=== PATIENT | male | born 1970 | race Caucasian/White ===

== ENCOUNTER 2017-10-22 11:26 | Emergency (ER) | payer BC ==
[2017-10-22 11:31] VITALS: BP 145/85; PULSE 92; TEMP 97.9; BMI 29.4
--- NOTE | 2017-10-22 11:47 | PDOC ---
History of Present Illness - General Chief Complaint: Urinary Problem Stated Complaint: KIDNEY PAIN Time Seen by Provider: 10/22/17 11:44 History Source: Patient - History of Present Illness Timing/Duration: reports: other Quality: reports: moderate Past History - Past Medical History Allergies/Adverse Reactions: Allergies Allergy/AdvReac Type Severity Reaction Status Date / Time No Known Allergies Allergy Verified 10/22/17 11:28 Home Medications: Ambulatory Orders Albuterol Sulfate Inhaler - [Ventolin HFA Inhaler -] 1 - 2 inh PO QID 04/25/14 Ibuprofen [Motrin] 800 mg PO TID #30 tablet 06/12/15 Asthma: Yes COPD: No - Immunization History Immunization Up to Date: Yes - Suicide/Smoking/Psychosocial Hx Smoking History: Never smoked Information on smoking cessation initiated: No Hx Alcohol Use: No Drug/Substance Use Hx: No Substance Use Type: None Review of Systems - Review of Systems Constitutional: No: Chills, Fever, Unexplained wgt Loss ABD/GI: No: Nausea, Vomiting, Abdominal cramping : No: Dysuria, Discharge, Flank Pain, Hematuria *Physical Exam - Vital Signs Last Vital Signs Temp Pulse Resp BP Pulse Ox 97.9 F 92 H 18 145/85 100 10/22/17 11:28 10/22/17 11:28 10/22/17 11:28 10/22/17 11:28 10/22/17 11:28 - Physical Exam Comments: 10/22/17 11:58 Pt sitting on chair and texting on phone General Appearance: Yes: Appropriately Dressed. No: Apparent Distress HEENT: positive: Normal Voice Neck: positive: Supple Respiratory/Chest: negative: Respiratory Distress Gastrointestinal/Abdominal: positive: Soft. negative: Tender Musculoskeletal: negative: CVA Tenderness, Vertebral Tenderness Integumentary: positive: Dry, Warm Neurologic: positive: Fully Oriented, Alert, Normal Mood/Affect, Motor Strength 5/5 ED Treatment Course - LABORATORY CBC & Chemistry Diagram: 10/22/17 12:11 10/22/17 12:11 Medical Decision Making - Medical Decision Making 10/22/17 11:53 47-year-old male history of asthma, chronic lower back pain, here with multiple complaints today. Patient complaining of chronic left lower back pain that sometimes radiates to groin x 1 year and states pain has been gradually getting worse and now also located to right lower back. Unable to describe pain, but states it's worse when he lays on his side and with certain movements. Feels that "pain is inside" per pt. No lower extremity weakness, saddle anesthesia, bladder or bowel incontinence or unexplained weight loss. No trauma. 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 Has been evaluated by new PMD a month ago with negative labs per patient. No imaging in past. Patient not taking anything for pain. Also complaining of decreased urinary stream x 1-1/2 months.. No urinary frequency, hematuria or dysuria otherwise. Patient denies nausea, vomiting, fever or chills. No known h/o renal stones. Of note, patient was seen [id number] for similar symptoms and had neg ua and CT a/p See exam Worsening of chronic lower back pain No recent trauma No unexplained weight loss No neuro sxs No imaging in past Neg labs in pmd's office 1 month ago ?[facility] -pain control -reassess Decreased urinary stream Possible 2/2 ? BPH -labs/ua 10/22/17 12:11 10/22/17 13:23 Labs unremarkable. Patient declines pain meds. Stable for discharge to follow up with PMD for further evaluation of chronic back pain and evaluation of prostate *DC/Admit/Observation/Transfer Diagnosis at time of Disposition: Chronic back pain Qualifiers: Back pain location: low back pain Back pain laterality: bilateral Sciatica presence: without sciatica Qualified Code(s): M54.5 - Low back pain; G89.29 - Other chronic pain; G89.29 - Other chronic pain - Discharge Dispostion Disposition: HOME Condition at time of disposition: Good - Referrals - Patient Instructions Printed Discharge Instructions: Low Back Pain Additional Instructions: Your labs and urine was normal Take motrin or tylenol for pain The cause of your back pain is unclear at this time. You will need further evaluation by your PMD. Your urinary complaints could also possibly be due to your prostate. Please also discuss this with your PMD - Post Discharge Activity
[2017-10-22] MEDS ORDERED: KETOROLAC TROMETHAMINE 30 MG/1 ML VIAL IVPUSH ONE (11:59)
[2017-10-22 12:34] LABS: EOS % 2.3 % (0-4.5); HEMATOCRIT 48.2 % (35.4-49); HEMOGLOBIN 16.1 GM/dL (11.7-16.9); LYMPH % 16.9 % (8-40); MCHC 33.4 g/dl (32.0-35.9); MEAN CELL VOLUME 86.7 fl (80-96); MEAN PLT VOLUME 9.4 fl (7.5-11.1); MONO % 8.8 % (3.8-10.2); PLATELET COUNT 221 K/MM3 (134-434); RBC 5.56 M/mm3 (4.00-5.60); RDW 13.4 % (11.9-15.9); WHITE BLOOD COUNT 7.6 K/mm3 (4.0-10.0)
[2017-10-22 12:38] LABS: URINE APPEARANCE CLEAR; URINE BILIRUBIN NEGATIVE (<2.0 mg/dL); URINE BLOOD NEGATIVE (NEGATIVE); URINE COLOR YELLOW; URINE GLUCOSE (UA) NEGATIVE (NEGATIVE); URINE KETONE NEGATIVE (NEGATIVE); URINE LEUK ESTERASE NEGATIVE (NEGATIVE); URINE NITRITE NEGATIVE (NEGATIVE); URINE PROTEIN NEGATIVE (NEGATIVE)
[2017-10-22 12:49] LABS: ALBUMIN 3.9 g/dl (3.4-5.0); ANION GAP 6 (8-16); BILIRUBIN,TOTAL 0.8 mg/dL (0.2-1.0); BLOOD UREA NITROGEN 14 mg/dL (7-18); CALCIUM 9.4 mg/dL (8.5-10.1); CHLORIDE 104 mmol/L (98-107); CO2 29 mmol/L (21-32); CREATININE 1.3 mg/dL (0.7-1.3); GLUCOSE,RANDOM 106 mg/dL (74-106); POTASSIUM 3.9 mmol/L (3.5-5.1); SGOT/AST 18 U/L (15-37); SGPT/ALT 41 U/L (12-78); SODIUM 139 mmol/L (136-145); TOT PROT 7.9 g/dl (6.4-8.2)
[2017-10-22 12:54] LABS: ALK PHOS 72 U/L (45-117)
== END 2017-10-22 13:40 | disposition home or self-care (01) ==
LOC: JER 11:26
PROC: 3E0333Z Introduction of Anti-inflammatory into Peripheral Vein, Percutaneous Approach (ICD-10-PCS; principal; 2017-10-22)
DX: M54.5 Low back pain (principal); G89.29 Other chronic pain; Z87.09 Personal history of other diseases of the respiratory system
CPT/HCPCS: 36415; 80053; 81003; 85025; 87086; 99281-25

== ENCOUNTER 2020-10-09 06:11 | Emergency (ER) | payer BC ==
[2020-10-09 06:23] VITALS: TEMP 98.7; BMI 28.8
[2020-10-09] MEDS ORDERED: ASPIRIN 81 MG CHEWABLE TABLETS PO ONE (07:18)
[2020-10-09] MEDS ORDERED: ASPIRIN 81 MG CHEWABLE TABLETS ONE (07:50)
[2020-10-09 07:53] LABS: BASO % 1.2 % (0-2.0); EOS % 2.7 % (0-4.5); HEMATOCRIT 45.7 % (35.4-49); HEMOGLOBIN 15.6 GM/dL (11.7-16.9); INR 0.97 (0.83-1.09); LYMPH % 20.4 % (8-40); MCH 29.4 pg (25.7-33.7); MCHC 34.1 g/dl (32.0-35.9); MEAN CELL VOLUME 86.2 fl (80-96); MEAN PLT VOLUME 9.4 fl (7.5-11.1); MONO % 11.6 % (3.8-10.2); NEUT % 64.1 % (42.8-82.8); PLATELET COUNT 207 K/MM3 (134-434); PROTHROMBIN TIME (PATIENT) 11.7 SEC (9.7-13.0); RDW 13.6 % (11.9-15.9); WHITE BLOOD COUNT 5.4 K/mm3 (4.0-10.0)
[2020-10-09 07:55] LABS: ACTIVATED PTT 33.2 SECONDS (25.2-36.5)
[2020-10-09 08:19] LABS: CHLORIDE 105 mmol/L (98-107); SODIUM 132 mmol/L (136-145)
[2020-10-09 08:21] LABS: CALCIUM 8.9 mg/dL (8.5-10.1)
[2020-10-09 08:22] LABS: ALBUMIN 3.8 g/dl (3.4-5.0); BLOOD UREA NITROGEN 14.9 mg/dL (7-18); CO2 28 mmol/L (21-32); GLUCOSE,RANDOM 99 mg/dL (74-106); MAGNESIUM 2.6 mg/dL (1.8-2.4)
[2020-10-09 08:25] LABS: CREATININE 1.2 mg/dL (0.55-1.3); SGOT/AST 84 U/L (15-37)
[2020-10-09 08:26] LABS: BILIRUBIN,TOTAL 0.4 mg/dL (0.2-1); TOT PROT 8.2 g/dl (6.4-8.2)
[2020-10-09 08:28] LABS: ALK PHOS 67 U/L (45-117)
[2020-10-09 08:30] LABS: N-TERMINAL BNP 20.9 pg/ml (5-125)
[2020-10-09 08:35] LABS: ANION GAP -2 MMOL/L (8-16); SGPT/ALT 44 U/L (13-61)
[2020-10-09 08:37] LABS: POTASSIUM 8.9 mmol/L (3.5-5.1)
[2020-10-09 09:42] VITALS: BP 119/80; PULSE 80
[2020-10-09 11:37] LABS: CHLORIDE 107 mmol/L (98-107); POTASSIUM 3.9 mmol/L (3.5-5.1); SODIUM 138 mmol/L (136-145)
[2020-10-09 11:38] LABS: ANION GAP 4 MMOL/L (8-16); CALCIUM 9.3 mg/dL (8.5-10.1); CO2 28 mmol/L (21-32)
[2020-10-09 11:39] LABS: BLOOD UREA NITROGEN 13.1 mg/dL (7-18); GLUCOSE,RANDOM 94 mg/dL (74-106)
[2020-10-09 11:42] LABS: CREATININE 1.1 mg/dL (0.55-1.3)
== END 2020-10-09 12:07 | disposition home or self-care (01) ==
LOC: JER 06:11
DX: R07.9 Chest pain, unspecified (principal)
CPT/HCPCS: 36415; 71045-TC-FY; 80048; 80053; 83735; 83880; 84443; 84484; 85025; 85610; 85730; 93005; 93010; 99285-25; C9803; U0003

== ENCOUNTER 2022-02-02 16:54 | Emergency (ER) | payer OTHER, BC ==
[2022-02-02 17:15] VITALS: BP 163/77; PULSE 87; TEMP 98.3; BMI 31.3
[2022-02-02] MEDS ORDERED: SULFAMETHOXAZOLE/TRIMETHOPRIM 800MG/160MG D.S. TABLET PO ONE (18:10)
[2022-02-02] MEDS ORDERED: SULFAMETHOXAZOLE/TRIMETHOPRIM 800MG/160MG D.S. TABLET ONE (18:15)
== END 2022-02-02 18:15 | disposition home or self-care (01) ==
LOC: JERFT 16:54
DX: S50.812A Abrasion of left forearm, initial encounter (principal); W50.4XXA Accidental scratch by another person, initial encounter
CPT/HCPCS: 99283-25

== ENCOUNTER 2022-05-21 19:17 | Observation (INO) | payer BC, OTHER ==
[2022-05-21 19:40] VITALS: BMI 31.1
[2022-05-21 22:30] LABS: BASO % 1.1 % (0-2.0); EOS % 3.7 % (0-4.5); HEMATOCRIT 46.4 % (35.4-49); HEMOGLOBIN 15.5 GM/dL (11.7-16.9); LYMPH % 15.8 % (8-40); MCHC 33.4 g/dl (32.0-35.9); MEAN CELL VOLUME 86.6 fl (80-96); MEAN PLT VOLUME 9.3 fl (7.5-11.1); MONO % 8.5 % (3.8-10.2); NEUT % 70.9 % (42.8-82.8); PLATELET COUNT 219 10^3/uL (134-434); RBC 5.35 M/mm3 (4.00-5.60); RDW 13.6 % (11.9-15.9); WHITE BLOOD COUNT 7.5 K/mm3 (4.0-10.0)
[2022-05-21 22:53] LABS: ALBUMIN 3.9 g/dl (3.4-5.0); CALCIUM 9.4 mg/dL (8.5-10.1)
[2022-05-21 22:57] LABS: CREATININE 1.3 mg/dL (0.55-1.3)
[2022-05-21 22:59] LABS: BILIRUBIN,TOTAL 0.3 mg/dL (0.2-1); TOT PROT 7.6 g/dl (6.4-8.2)
[2022-05-21 23:01] LABS: N-TERMINAL BNP 12.3 pg/ml (5-125)
[2022-05-22] MEDS ORDERED: ACETAMINOPHEN 1000 MG/100 ML BAG IVPB ONE (00:08)
[2022-05-22] MEDS ORDERED: ACETAMINOPHEN INJECTION 100 ML IVPB ONE ×2 (00:25→10:08)
[2022-05-22 00:41] LABS: PH,URINE 7.5 (5.0-8.0); URINE APPEARANCE CLEAR; URINE BILIRUBIN NEGATIVE (NEGATIVE); URINE COLOR YELLOW; URINE GLUCOSE (UA) NEGATIVE (NEGATIVE); URINE KETONE NEGATIVE (NEGATIVE); URINE LEUK ESTERASE NEGATIVE (NEGATIVE); URINE NITRITE NEGATIVE (NEGATIVE); URINE PROTEIN NEGATIVE (NEGATIVE); URINE UROBILINOGEN 0.2 mg/dL (0.2-1.0)
[2022-05-22 07:41] LABS: BASO % 1.1 % (0-2.0); HEMATOCRIT 45.3 % (35.4-49); HEMOGLOBIN 15.3 GM/dL (11.7-16.9); LYMPH % 18.1 % (8-40); MCH 29.3 pg (25.7-33.7); MCHC 33.8 g/dl (32.0-35.9); MEAN CELL VOLUME 86.6 fl (80-96); MEAN PLT VOLUME 9.3 fl (7.5-11.1); MONO % 11.8 % (3.8-10.2); PLATELET COUNT 197 10^3/uL (134-434); RBC 5.24 M/mm3 (4.00-5.60); RDW 13.6 % (11.9-15.9); WHITE BLOOD COUNT 6.3 K/mm3 (4.0-10.0)
[2022-05-22 07:49] LABS: ALBUMIN 3.8 g/dl (3.4-5.0); BLOOD UREA NITROGEN 16.1 mg/dL (7-18); CALCIUM 9.3 mg/dL (8.5-10.1); MAGNESIUM 2.2 mg/dL (1.8-2.4)
[2022-05-22 07:51] LABS: CREATININE 1.2 mg/dL (0.55-1.3)
[2022-05-22 07:53] LABS: BILIRUBIN,TOTAL 0.6 mg/dL (0.2-1); TOT PROT 7.4 g/dl (6.4-8.2)
[2022-05-22] MEDS: INSULIN SLIDING SCALE (NOVOLOG) 1 VIAL SQ SCH ×4 (09:25→21:59)
[2022-05-22] MEDS ORDERED: ENOXAPARIN NA (PORCINE) 40 MG/0.4 ML DISP.SYRIN SQ ONE (09:30)
[2022-05-22] MEDS: ENOXAPARIN NA (PORCINE) 40 MG/0.4 ML DISP.SYRIN SQ SCH (09:34)
[2022-05-22] MEDS ORDERED: ALBUTEROL SO4 2.5/IPRATROPIUM 0.5 INH SOL 3 ML VIAL.NEB. NEB PRN (10:47)
[2022-05-22] MEDS ORDERED: ACETAMINOPHEN 1000 MG/100 ML BAG IVPB PRN (10:48)
[2022-05-22] MEDS ORDERED: methylPREDNISolone NA SUCC 40 MG/1 ML VIAL ONE ×2 (11:29→17:41)
[2022-05-22] MEDS: methylPREDNISolone NA SUCC 40 MG/1 ML VIAL IVPUSH SCH ×2 (11:36→17:42)
[2022-05-22] MEDS ORDERED: MONTELUKAST NA 10 MG TABLET PO SCH (22:00)
[2022-05-22] MEDS ORDERED: MONTELUKAST NA 10 MG TABLET ONE (22:02)
[2022-05-22 23:06] VITALS: PULSE 100; RESP 20; TEMP 98.8
[2022-05-23] MEDS ORDERED: methylPREDNISolone NA SUCC 40 MG/1 ML VIAL ONE ×2 (02:36→12:13)
[2022-05-23] MEDS: methylPREDNISolone NA SUCC 40 MG/1 ML VIAL IVPUSH SCH ×2 (03:22→12:27)
[2022-05-23 05:44] VITALS: BP 133/78
[2022-05-23] MEDS ORDERED: ASPIRIN 81 MG CHEWABLE TABLETS PO SCH (10:00)
[2022-05-23] MEDS ORDERED: QUINAPRIL HCL 10 MG TABLET PO SCH (10:00)
[2022-05-23] MEDS: INSULIN SLIDING SCALE (NOVOLOG) 1 VIAL SQ SCH ×2 (12:12→12:27)
[2022-05-23] MEDS ORDERED: ASPIRIN 81 MG CHEWABLE TABLETS ONE (12:13)
[2022-05-23] MEDS ORDERED: ENOXAPARIN NA (PORCINE) 40 MG/0.4 ML DISP.SYRIN SQ ONE (12:13)
[2022-05-23] MEDS: ENOXAPARIN NA (PORCINE) 40 MG/0.4 ML DISP.SYRIN SQ SCH (12:27)
== END 2022-05-23 17:15 | disposition home or self-care (01) ==
LOC: JER 19:17 → JERBED 20:58
PROVIDERS: ADMIT Internal Medicine; ATTEND Internal Medicine
PROC: 3E033NZ Introduction of Analgesics, Hypnotics, Sedatives into Peripheral Vein, Percutaneous Approach (ICD-10-PCS; principal; 2022-05-21)
PROC: 3E033NZ Introduction of Analgesics, Hypnotics, Sedatives into Peripheral Vein, Percutaneous Approach (ICD-10-PCS; 2022-05-21)
PROC: 3E023GC Introduction of Other Therapeutic Substance into Muscle, Percutaneous Approach (ICD-10-PCS; 2022-05-21)
PROC: 3E013VG Introduction of Insulin into Subcutaneous Tissue, Percutaneous Approach (ICD-10-PCS; 2022-05-21)
DX: R55 Syncope and collapse (principal); J45.909 Unspecified asthma, uncomplicated; R51.9 Headache, unspecified; I10 Essential (primary) hypertension; E78.5 Hyperlipidemia, unspecified; Z86.16 Personal history of COVID-19; R73.03 Prediabetes; W18.39XA Other fall on same level, initial encounter; Y93.89 Activity, other specified; Y92.009 Unspecified place in unspecified non-institutional (private) residence as the place of occurrence of the external cause
CPT/HCPCS: 0241U-QW; 36415; 70450-TC; 70551-TC; 71045-TC-FY; 71275-TC; 80053; 80061; 81003; 82962; 83735; 83880; 84100; 84443; 84484; 85025; 85379; 87086; 93005; 93010; 93306-TC; 93880-TC; 96372; 96374; 96375; 96376; 99285-25; G0378; Q9967

== ENCOUNTER 2023-11-25 08:29 | Emergency (ER) | payer BC, OTHER ==
[2023-11-25 08:34] VITALS: RESP 20; TEMP 97.6; BMI 31.4
[2023-11-25] MEDS ORDERED: ACETAMINOPHEN 325 MG TABLET (FP) ONE (10:28)
[2023-11-25] MEDS: ACETAMINOPHEN 500 MG TABLET (FP) PO ONE (10:33)
[2023-11-25 13:02] VITALS: BP 125/83; PULSE 79
== END 2023-11-25 13:02 | disposition home or self-care (01) ==
LOC: JER 08:29
DX: R07.89 Other chest pain (principal); R52 Pain, unspecified; R50.9 Fever, unspecified; R05.9 Cough, unspecified; R09.81 Nasal congestion; J11.1 Influenza due to unidentified influenza virus with other respiratory manifestations; Z20.822 Contact with and (suspected) exposure to COVID-19
CPT/HCPCS: 0241U-QW; 71046-TC-FY; 93005; 93010; 99285-25